=== PATIENT | male | born 1975 | race Caucasian/White ===

== ENCOUNTER → 2016-12-08 | Outpatient (CLI) | payer BC ==
[2016-12-08 08:55] LABS: LYMPH # 1.8 K/mm3 (0.7-4.5); LYMPH % 30.6 % (10-50)
[2016-12-08 08:58] LABS: HEMOGLOBIN 16.3 g/dL (14.1-18.0)
[2016-12-08 09:52] LABS: BUN 23 mg/dL (7-18)
[2016-12-08 10:07] LABS: GFR (ESTIMATED) 82 ML/MIN (>60)
[2016-12-09 10:41] LABS: Testosterone 271 ng/dL (264-916)
== END ==
LOC: LAB 07:24
PROVIDERS: Family Medicine
DX: R53.83 Other fatigue (principal); R41.840 Attention and concentration deficit; E29.1 Testicular hypofunction